=== PATIENT | female | born 1990 | race African-American/Black ===

== ENCOUNTER 2017-09-11 19:46 | Emergency (ER) | payer MEDICAID ==
[~2017-09-11 19:46] MED LIST: ALDOMET250 MG PO; EZFE 200200 MG PO; HYDROCODONE-APA1 TAB PO; IBUPROFEN600 MG PO; PRENATAL COMPLE1 TAB PO
== END 2017-09-11 21:33 | disposition home or self-care (01) ==
LOC: D.ER 19:46
DX: R07.89 Other chest pain (principal); I10 Essential (primary) hypertension

== ENCOUNTER 2020-09-26 07:40 | Inpatient (IN) | payer BC ==
[2020-09-23 11:32] LABS: BASOPHILS 0.3 % (0-2); EOSINOPHILS 0.6 % (0-7); HEMATOCRIT 36.9 % (36.0-48.0); HEMOGLOBIN 11.5 g/dL (12-16); IMMATURE GRANULOCYTES 0.1 % (0-5); LYMPHOCYTE ABS# 1.75 10x3/uL (1.18-3.74); LYMPHOCYTES 25.8 % (15-50); MCHC 31.2 g/dL (31.0-37.0); MCV 86.6 fL (80.0-100.0); MEAN PLATELET VOLUME 9.9 fL (7.4-10.4); MONOCYTES 5.2 % (2-11); NEUTROPHIL ABS# 4.61 10x3/uL (1.56-6.13); PLATELET COUNT 288 10x3/uL (130-400); RBC 4.26 10x6/uL (4.00-5.40); RDW 13.4 % (11.5-14.5); WBC 6.8 10x3/uL (4.8-10.8)
[2020-09-23 11:38] LABS: ANION GAP 12.4 mmol/L (8-16); CARBON DIOXIDE 26.6 mmol/L (21.0-32.0); CREATININE - SERUM 1.1 mg/dL (0.6-1.3)
[~2020-09-26] VITALS: Ht 165.1 cm; Wt 75.5 kg
[~2020-09-26 07:40] MED LIST changes: +BUTALB-APAP-CA1 EACH PO; +FERROUS SULFAT325 MG
[2020-09-26] MEDS ORDERED: ULTRAM50 MG PO (09:09)
[2020-09-26] MEDS ORDERED: CYCLOBENZAPRINE10 MG PO (09:09)
[2020-09-26 09:10] VITALS: BP 117/78; BMI 27.6
[2020-09-26 09:34] LABS: HCG URINE NEGATIVE (NEGATIVE)
--- NOTE | 2020-09-26 13:20 | NUR ---
NURSE STATED SHE WOULD CALL ME BACK TO GET REPORT.
--- NOTE | 2020-09-26 13:45 | NUR ---
RECEIVED FROM RECOVERY ROOM ON [facility], WITH COACHING AND SOME ASSISTANCE SHE IS ABLE TO MOVE SELF TO ROOM BED. SHE RESPONDS TO HER NAME BUT QUICKLY FALLS BACK TO SLEEP. IV TO RIGHT HAND INFUSING LR PER ORDERS. LARGE WHITE BANDAGE COVERS BIKINI INCISION, ABDOMEN SOFT TO TOUCH. MAYORGA CATH TO BEDSIDE DRAIN WITH 125ML CLEAR URINE NOTED. VSS CHARTED TO FLOWSHEET. AWAITING POST OP ORDERS FROM DR HERNANDEZ.
--- NOTE | 2020-09-26 14:08 | NUR ---
ICE PACK TO INCISION, SMALL ICE WATER, SHE DOES DENY NAUSEA AT THIS TIME. TILTED TO HER RIGHT SIDE REQUESTED. CALL LIGHT AND PHONE IN REACH WITH SIDE RAILS UP X 2.
--- NOTE | 2020-09-26 14:30 | NUR ---
PT SLEEPING WITHOUT SIGNS OF DISTRESS. CALL LIGHT IN REACH,
--- NOTE | 2020-09-26 15:15 | NUR ---
PT CONTINUES TO BE SLEEPING, RESP EVEN. LEFT UNDISTURBED. CALL LIGHT IN REACH.
--- NOTE | 2020-09-26 16:58 | NUR ---
CALLS OUT THAT SHE IS IN PAIN AND ASK FOR NURSE TO COME TO ROOM. THIS RN TO BEDSIDE DILAUDIS DRIVABILITY TECHNICIAN SET UP WITH LOADING DOSE GIVEN, SHE DEMONSTRATE USE OF DRIVABILITY TECHNICIAN BUTTON. TORDAL 30ML ALSO GIVEN SIVP AT THIS TIME. SHE RATES PAIN/BURNING AT 8/10. NEW ICE PACK TO INCISION AND LARGE ICE WATER REQUESTED. REFUSES CLEAR LIQUID DIET AT THIS TIME, WILL CALL NURSE IF SHE WANTS ANYTHING.
[2020-09-26 17:29] LABS: BASOPHILS 0.1 % (0-2); EOSINOPHILS 0 % (0-7); HEMOGLOBIN 11.9 g/dL (12-16); IMMATURE GRANULOCYTES 0.2 % (0-5); LYMPHOCYTE ABS# 0.55 10x3/uL (1.18-3.74); LYMPHOCYTES 3.8 % (15-50); MCH 27.5 pg (26.0-34.0); MCHC 32.2 g/dL (31.0-37.0); MCV 85.5 fL (80.0-100.0); MEAN PLATELET VOLUME 10.1 fL (7.4-10.4); MONOCYTES 2.7 % (2-11); NEUTROPHIL ABS# 13.62 10x3/uL (1.56-6.13); NEUTROPHILS 93.2 % (40-80); PLATELET COUNT 283 10x3/uL (130-400); RBC 4.33 10x6/uL (4.00-5.40); RDW 13.1 % (11.5-14.5); WBC 14.6 10x3/uL (4.8-10.8)
[2020-09-26 17:40] LABS: CALC OSMOLALITY 271 mosm/kg (275-300); CALCIUM 8.7 mg/dL (8.5-10.1); CHLORIDE - SERUM 99 mmol/L (98-107); CREATININE - SERUM 0.9 mg/dL (0.6-1.3); GLUCOSE 108 mg/dL (74-106); POTASSIUM - SERUM 3.6 mmol/L (3.5-5.1); SODIUM 136 mmol/L (136-145); UREA NITROGEN 10 mg/dL (7-18); eGFR NON AFRICAN AMERICAN 78 mL/min (90-120)
[2020-09-26 17:42] LABS: CARBON DIOXIDE 49.3 mmol/L (21.0-32.0)
[2020-09-26 19:14] VITALS: BP 124/80
--- NOTE | 2020-09-26 20:59 | NUR ---
RN TO PT BEDSIDE, PT REQUESTS A BOWL OF BROTH AT THIS TIME, RN PROVIDED PT WITH BEEF BROTH AND ICE WATER AT THIS TIME.
--- NOTE | 2020-09-26 21:05 | NUR ---
RN CALLED TO PT BEDSIDE, PT STATES THAT THE BEEF BROTH MADE HER FEEL "A LITTLE NAUSEATED", RN TO REVIEW EMAR FOR ANTIEMETICS.
--- NOTE | 2020-09-26 21:18 | NUR ---
RN TO PT BEDSIDE, ZOFRAN 4MG IVP ADMINISTERED AT THIS TIME.
--- NOTE | 2020-09-26 23:14 | NUR ---
RN TO PT BEDSIDE, PT SITTING UP IN BED WATCHING TV. PT STATES HER PAIN IS 2/10 TO ABDOMEN, PT DENIES THE NEED FOR ANY INTERVENTIONS AT THIS TIME. PT DENIES ANY NAUSEA/VOMITING.
[2020-09-26 23:40] VITALS: BP 128/81
--- NOTE | 2020-09-27 03:01 | NUR ---
RN TO PT BEDSIDE, PT LAYING IN BED. PT DENIES ANY CURRENT NEEDS.
--- NOTE | 2020-09-27 03:45 | NUR ---
SANDI 30MG IVP ADMINISTERED AT THIS TIME FOR ABDOMINAL CRAMPING.
--- NOTE | 2020-09-27 03:47 | NUR ---
RN TO PT BEDSIDE, PT COMPLAINS OF THROAT PAIN/DISCOMFORT OF 5/10 ON PAIN SCALE. RN PROVIDED PATIENT WITH SALT WATER TO GURGGLE. PT GURGGLED SALT WATER. PT STATES SHE IS HAVING ABDOMINAL CRAMPING, RN TO REVIEW EMAR.
--- NOTE | 2020-09-27 04:08 | NUR ---
RN TO PT BEDSIDE WITH TEA AND HONEY TO HELP SOOTH PT'S THROAT.
[2020-09-27 05:15] VITALS: BP 124/85
[2020-09-27 05:36] LABS: BASOPHILS 0.1 % (0-2); EOSINOPHILS 0 % (0-7); HEMATOCRIT 30.8 % (36.0-48.0); HEMOGLOBIN 9.7 g/dL (12-16); IMMATURE GRANULOCYTES 0.1 % (0-5); LYMPHOCYTE ABS# 1.35 10x3/uL (1.18-3.74); LYMPHOCYTES 9.1 % (15-50); MCH 26.8 pg (26.0-34.0); MCHC 31.5 g/dL (31.0-37.0); MCV 85.1 fL (80.0-100.0); MONOCYTES 6.6 % (2-11); NEUTROPHIL ABS# 12.44 10x3/uL (1.56-6.13); NEUTROPHILS 84.1 % (40-80); PLATELET COUNT 309 10x3/uL (130-400); RBC 3.62 10x6/uL (4.00-5.40); RDW 13.1 % (11.5-14.5); WBC 14.8 10x3/uL (4.8-10.8)
[2020-09-27 06:06] LABS: CALC OSMOLALITY 265 mosm/kg (275-300); CALCIUM 8.4 mg/dL (8.5-10.1); CHLORIDE - SERUM 102 mmol/L (98-107); CREATININE - SERUM 0.9 mg/dL (0.6-1.3); GLUCOSE 103 mg/dL (74-106); POTASSIUM - SERUM 3.8 mmol/L (3.5-5.1); SODIUM 134 mmol/L (136-145); UREA NITROGEN 8 mg/dL (7-18); eGFR NON AFRICAN AMERICAN 78 mL/min (90-120)
[2020-09-27 06:07] LABS: CARBON DIOXIDE 24.8 mmol/L (21.0-32.0)
--- NOTE | 2020-09-27 06:19 | NUR ---
RN TO PT BEDSIDE, PT ASSISTED TO AMBULATORY POSITION, PT AMBULATED TO BATHROOM WITH STANDBY ASSISTANCE, GAIT STEADY, PT UNABLE TO VOID AT THIS TIME. PT PROVIDED WITH GOWN, BRIEF AND PAD, COMPLETE BEDDING CHANGED AT THIS TIME. PT AMBULATED BACK TO BED WITH STANDBY ASSISTANCE, GAIT STEADY.
[2020-09-27 06:34] VITALS: BP 124/85; Ht 165.1 cm; Wt 75.5 kg
--- NOTE | 2020-09-27 08:00 | NUR ---
AM ASSESSMENT COMPLETED CHARTED TO FLOWSHEET. RATES PAIN AT 4-5/[address] HERNANDEZ REMOVED DRESSING THIS AM, INICISION IS CLEAN AND DRY WITH MARGUERITE IN PLACE. ABD SOFT TO TOUCH, BOWEL SOUNDS ACTIVE X 4. SALINE LOCK TO PATENT AND FLUSHED WITH 5ML NS. HAS NOT BEEN UP TO VOID POST AMYORGA CATH REMOVEAL, REASSURED HER THAT WAS OK AND COULD GET UP TO TRY AFTER BREAKFAST. DENIES NEEDS AT THIS TIME. CALL LIGHT IN REACH WITH SIDE RAILS UP X 2.
--- NOTE | 2020-09-27 08:57 | NUR ---
ZOFRAN GIVEN SCANNED TO EMAR.
--- NOTE | 2020-09-27 09:48 | NUR ---
UP TO BATHROOM, NO ASSISTANCE NEEDED. VOIDED 300ML WITHOUT COMPLAINT. JAYME CARE PER SELF. RATES PAIN AT4/10. LARGE ICE WATER AND ICE PACK PROVIDED REQUESTED.
--- NOTE | 2020-09-27 10:45 | NUR ---
CALLS OUT ASKING FOR PAIN MED, THIS RN TO BEDSIDE WITH MEDS. SHE RATES AT 9/10 STATING THAT SHE JUST GOT UP TO BATHROOM AGAIN AND HAVING MORE CRAMPING. MEDS SCANNED TO EMAR. PT ENCOURAGED TO AMBULATE MORE IN ROOM OR OUT IN HALLS WHEN SHE BEGAN FEELING BETTER.
--- NOTE | 2020-09-27 14:18 | NUR ---
PT ASK TO TAKE A SHOWER. TOWELS PLACED IN BATHROOM AND SHOWER SEAT PROVIDED. SHE STATES UNDERSTANDING OF EMERGENCY CALL LIGHT IF NURSE IS NEEDED. IN NURSERY AT THIS TIME.
--- NOTE | 2020-09-27 14:18 | NUR ---
NEW ICE PACK REQUESTED, RATES PAIN AT 4/10 AT THIS TIME.
--- NOTE | 2020-09-27 15:48 | NUR ---
OUT OF SHOWER, DRESSED IN HER CLOTHING AND FITTED WITH ABD BINDER. SHE DOES WALK HALLWAY X 2 BEFORE RETURNING TO HER ROOM.
--- NOTE | 2020-09-27 17:29 | NUR ---
PT RATES PAIN AT 4/10, VISITING WITH FAMILY MEMBER AT BEDSIDE. DENIES NEEDS AT THIS TIME. CALL LIGHT IN REACH.
--- NOTE | 2020-09-27 19:10 | NUR ---
PT. LYING IN LEFT TILT POSITION USING PILLOW FOR SUPPORT. PT. APPEARS TO BE IN PAIN ACCORDING TO HER FACIAL EXPRESSIONS. INTRODUCED SELF TO PT. NURSE TO PROVIDE CARE THIS SHIFT. DISCUSSED CONTINUED PLAN OF CARE WITH PT. CONCERNING PAIN MEDICATIONS AND OBTAINING ORDERS FOR GAS PAIN AND A STOOL SOFTENER. PT. REPORTS "ITS JUST REALLY ALL OVER MY ABDOMEN" WHEN ASKED IF HER PAIN IS INCISIONAL OR NOT. PT. REPORTS PAIN IS AT "8" ON 0-10 SCALE. EMAR CHECKED AND PT. HAD JUST HAD BOTH MOTRIN AND NORCO AT 5 PM. INSTRUCTED PT. THAT I WILL BE UNABLE TO BRING HER ANY PAIN MEDICATION UNTIL 9PM. PT. VERBALIZES UNDERSTANDING BUT IS GETTING TEARFUL AT THIS TIME. INQUIRED IF PT. HAS BEEN OUT OF BED AND WALKED THE UNIT YET. PT. REPORTS "I HAVE GOTTEN UP TO THE BATHROOM SEVERAL TIMES TODAY AND TO THE NURSES DESK ONE TIME". INSTRUCTED PT. REAGARDING GAS PAINS AND PT. VERBALIZES UNDERSTANDING. INQUIRED IF PT. WOULD LIKE TO HAVE SOME MEDICATION TO POSSIBLY HELP HER SLEEP TONIGHT. PT. REPORTS "THAT WOULD BE NICE BECAUSE I DIDN'T GO TO SLEEP TILL ABOUT 4AM THIS MORNING". INSTRUCTED PT. THAT I WILL CONTACT DR. HERNANDEZ TO SEE IF WE CAN POSSIBLY GIVE HER SOME AMBIEN TO HELP HER REST COMFORTABLY TONIGHT. PT. VERBALIZES UNDERSTANDING. PT. REQUEST ICE PACK AT THIS TIME FOR INCISIONAL DISCOMFORT.
--- NOTE | 2020-09-27 19:23 | NUR ---
ICE PACK APPLIED TO LOW TRANSVERSE INCISION WITH MARGUERITE AT PT. REQUEST. SIMETHICONE 120 MG ADMINISTERED ORALLY AFTER INSTRUCTING PT. TO CHEW BEFORE SWALLOWING. COLACE 100 MG ADMINISTERED ORALLY ALSO. PROVIDED PT. WITH WARM CUP OF TEA AND INSTRUCTED PT. TO ATTEMPT TO DRINK THIS AND SLOW DOWN ON CARBONATED BEVERAGES THE WARM TEA WITH HELP WITH HER PASSING GAS. PT. VERBALIZES UNDERSTANDING.
[2020-09-27 19:25] VITALS: BP 129/79
--- NOTE | 2020-09-27 19:25 | NUR ---
VITALS AND ASSESSMENT COMPLETED. SEE NURSING FLOWSHEET. RESP. ARE EVEN AND UNLABORED. BREATH SOUNDS CLEAR. PT. DOES NOT HAVE AN INCENTIVE SPIROMETER AT THIS TIME. WILL PROVIDE ONE ALONG WITH INSTRUCTIONS REGARDING USE. PT. REPORTS "I USED THE BATHROOM AGAIN IN THAT HAT THING, DO I NEED TO KEEP DOING THAT". INQURIRED IF THIS WAS PT.'S 3RD VOID SINCE HAVING MAYORGA CATH REMOVED. PT. REPORTS "I THINK SO". ADVISED I WILL LOOK IN CHARTING AND IF IT IS I WILL LET HER KNOW BECAUSE SHE WILL NO LONGER NEED TO CATCH URINE. PT. VERBALIZES UNDERSTANDING. BOWEL SOUNDS HYPOACTIVE X 4. PT. REPORTS PASSING "A LITTLE" BIT OF GAS AT TIMES. BIKINI LINE INCISION WITH MARGUERITE IS C/D/I. NO AREAS OF BRUISING OR OOZING OF FLUIDS FROM INCISIONAL SITE AT THIS TIME. WILL CONT. TO MONITOR. INSTRUCTED PT. REGARDING GETTING OUT OF BED AND WALKING THE HALLWAY AT LEAST ONCE PRIOR TO GOING TO BED AND INSTRUCTED THAT AMBULATION IS PROBABLY ONE OF THE BEST THINGS SHE CAN DO FOR "GAS" PAINS. INSTRUCTED PT. IF SHE WOULD LIKE TO TRY THE PRUNE JUICE COCKTAIL OR EVEN HAVE MORE WARM TEA TO JUST LET ME KNOW. PT. VERBALIZES UNDERSTANDING AND DENIES FURTHER NEEDS AT THIS TIME. WILL CONT. TO MONITOR.
--- NOTE | 2020-09-27 20:04 | NUR ---
PAGED DR. HERNANDEZ CONCERNING PT.'S REQUEST FOR SOMETHING TO HELP HER SLEEP TONIGHT
--- NOTE | 2020-09-27 20:06 | NUR ---
DR. HERNANDEZ RETURNS PAGE. ORDERS REC. TO PROVIDE AMBIEN 10 MG TO HELP PT. REST TONIGHT REQUESTED.
--- NOTE | 2020-09-27 21:02 | NUR ---
AMBIEN 10 MG ADMINISTERED ORALLY PER MD ORDERS AND PT. REQUEST FOR "SOMETHING TO HELP ME SLEEP".
--- NOTE | 2020-09-27 21:11 | NUR ---
INCENTIVE SPIROMETER PROVIDED ALONG WITH INSTRUCTIONS REGARDING USE. INSTRUCTED PT. IT SHOULD BE USED 10 TIMES AN HOUR WHILE AWAKE. PT. ABLE TO GET ABOVE 1500 ON CHAMBER BUT THIS IS SET HER GOAL BECAUSE GOING ABOVE THAT MADE HER "KIND OF DIZZY". LARGE CUP OF ICE WATER PROVIDED REQUESTED ALONG WITH FRESH ICE PACK FOR INCISION. PT. REPORTS "I AM PASSING A LITTLE GAS NOW SO I THINK THAT MEDICINE WILL HELP". INSTRUCTED PT. THAT SHE MAY HAVE SIMETHICONE EVERY 4 HOURS NEEDED AND THAT I WILL BRING IT TO HER WITH HER NEXT DOSE OF PAIN MEDICATION. INSTRUCTED PT. THAT SHE SHOULD TRY TO GO TO SLEEP SOON POSSIBLE BECAUSE AMBIEN CAN MAKE YOU FEEL "CRAZY" IF YOU TRY AND STAY AWAKE AFTER TAKING IT. INSTRUCTED PT. THAT I WILL NOT BE WAKING HER UP UNLESS IT IS TO GIVE HER PAIN MEDICATION BECAUSE SHE WENT 8 HOURS BETWEEN TAKING IT EARLIER AND I BELIEVE THIS IS WHY SHE WAS HURTING SO BAD WHEN I CAME IN TODAY. PT. VERBALIZES UNDERSTANDING AND DENIES FURTHER QUESTIONS OR CONCERNS AT THIS TIME. PT. REQUEST LIGHTS BE TURNED DOWN AT THIS TIME. LIGHTS OFF, CALL LIGHT WITHIN REACH AND PHONE TO BEDSIDE TABLE. WILL CONT. TO MONITOR.
--- NOTE | 2020-09-27 23:25 | NUR ---
PT. LYING IN RIGHT TILT POSITION WITH EYES CLOSED AND APPEARS TO BE RESTING COMFORTABLY. RESP. ARE EVEN AND UNLABORED. NO SIGNS OF DISTRESS NOTED. PT. NOT DISTURBED AT THIS TIME. WILL CONT. TO MONITOR.
--- NOTE | 2020-09-28 00:52 | NUR ---
PT. AWAKENS EASILY WITH VERBAL STIMULATION. INSTRUCTED PT. THAT I HAVE HER PAIN MEDICATION WHICH IS NORCO 10/325 MG 1 TAB AND IBUPROFEN 600 MG 1 TAB ORDERED. INSTRUCTED PT. THAT I HAVE BROUGHT THEM TO HER BECAUSE I DIDN'T WANT HER TO GO ANOTHER 8 HOURS WITHOUT TAKING LIKE SHE HAD EARLIER DURING THE DAY BECAUSE IT IS THEN MORE DIFFICULT TO CONTROL PAIN. PT. VERBALIZES UNDERSTANDING AND DENIES ANY QUESTIONS OR NEEDS AT THIS TIME. WILL CONT. TO MONITOR.
--- NOTE | 2020-09-28 02:05 | NUR ---
PT. LYING IN SEMI FOWLERS POSITION WITH EYES CLOSED AND APPEARS TO BE RESTING COMFORTABLY. NO SIGNS OF DISTRESS NOTED. RESP. ARE EVEN AND UNLABORED. PT. NOT DISTURBED AT THIS TIME. WILL CONT. TO MONITOR.
--- NOTE | 2020-09-28 03:40 | NUR ---
PT. RESTING COMFORTABLY WITH EYES CLOSED UPON OPENING DOOR. RESP. ARE EVEN AND UNLABORED. NO SIGNS OF DISTRESS NOTED. WILL CONT. TO MONITOR. PT. NOT DISTURBED AT THIS TIME.
--- NOTE | 2020-09-28 05:07 | NUR ---
PT. AWAKENS UPON ENTERING ROOM. INSTRUCTED PT. I HAVE HER MYLICON FOR GAS DISCOMFORT AND HER PAIN MEDICATION. PT. VERBALIZES UNDERSTANDING. NORCO 1 TAB ADMINISTERED ORALLY PER COMPLAINT OF PAIN. PT. RATING PAIN AT "5" ON 0-10 SCALE AND REPORTS "ITS MAINLY STILL MY WHOLE ABDOMEN BUT ALSO MY INCISION IS HURTING TOO". INQUIRED IF PT. IS GETTING ANY RELIEF FROM GAS PAIN AND PT. REPORTS "YES I AM PASSING GAS NOW". LARGE ICE WATER PROVIDED AT THIS TIME ALONG WITH FRESH ICE PACK FOR INCISION. INSTRUCTED PT. THAT SHE REALLY NEEDS TO TRY AND NOT USE THE ICE PACK MUCH TODAY SO THAT BLOOD FLOW IS ABLE TO GET TO INCISIONAL SITE AND START THE HEALING PROCESS. PT. VERBALIZES UNDERSTANDING AND DENIES FURTHER NEEDS OR CONCERNS AT THIS TIME.
--- NOTE | 2020-09-28 06:17 | NUR ---
PT. RESTING IN RIGHT TILT POSITION WITH EYES CLOSED AND NO DISTRESS NOTED. RESP. ARE EVEN AND UNLABORED. PT. NOT DISTURBED AT THIS TIME. WILL CONT. TO MONITOR.
--- NOTE | 2020-09-28 07:40 | NUR ---
PATIENT IN BED RESTING, EASILY AWAKEN UPON RN ENTERING ROOM. ASSESSMENT COMPLETED AT BEDSIDE. PATIENT DENIES PAIN AT THIS TIME. VSS. INCISION CLEAN AND DRY. OPEN TO AIR. MARGUERITE PRESENT. PATIENT HAS ICE PACK ON INCISION AT THIS PRESENT TIME. PATIENT EDUCATED ON THE IMPORTANCE OF RESTING AREA BETWEEN ICE APPLICATION. PATIENT VERBALIZED UNDERSTANDING. PATIENT UPDATED ON PLAN OF CARE AT BEDSIDE. SIDE RAILS UP X2, BED IN LOW POSITION, CALL LIGHT WITHIN REACH.
[2020-09-28 07:45] VITALS: BP 124/86
--- NOTE | 2020-09-28 11:19 | NUR ---
PATIENT IN BED RESTING, EASILY AWAKEN UPON RN ENTERING ROOM. NEW ICE PACK GIVEN TO PATIENT. NO OTHER NEEDS NOTED. SIDE RAILS UP X2, BED IN LOW POSITION, CALL LIGHT WITHIN REACH.
--- NOTE | 2020-09-28 12:13 | NUR ---
DR. HERNANDEZ PRESENT FOR PATIENT ASSESSMENT AT THIS TIME.
[2020-09-28] MEDS ORDERED: HYDROCODON-ACE1 EA10 PO (12:22)
[2020-09-28] MEDS ORDERED: IBUPROFEN600 MG PO (12:23)
--- NOTE | 2020-09-28 12:56 | NUR ---
PATIENT TO BE DISCHARGED HOME IN STABLE CONDITION TO SELF CARE. PATIENT PROVIDED COPY OF DISCHARGE INSTRUCTIONS, PRESCRIPTION AND EDUCATION. PATIENT VERBALIZES UNDERSTANDING OF INFORMATION PROVIDED. AWAITING MOTHER TO COME STATION JAILER. WILL TAKE TO DISCHARGE ARE VIA WHEELCHAIR ONCE RIDE IS AVAILABLE.
== END 2020-09-28 13:31 | disposition home or self-care (01) | DRG 743 ==
LOC: D.OPS 07:40 → D.LD 13:59
PROVIDERS: Anesthesiology; ADMIT Obstetrics & Gynecology; ATTEND Obstetrics & Gynecology
PROC: 0UN90ZZ Release Uterus, Open Approach (ICD-10-PCS; 2020-09-26)
PROC: 0UN20ZZ Release Bilateral Ovaries, Open Approach (ICD-10-PCS; 2020-09-26)
PROC: 0UN70ZZ Release Bilateral Fallopian Tubes, Open Approach (ICD-10-PCS; principal; 2020-09-26 09:30)
DX: N80.9 Endometriosis, unspecified (principal); N73.6 Female pelvic peritoneal adhesions (postinfective); F41.8 Other specified anxiety disorders; G43.909 Migraine, unspecified, not intractable, without status migrainosus; N97.8 Female infertility of other origin